=== PATIENT | female | born 1960 | race African-American/Black ===

== ENCOUNTER 2016-07-01 05:19 | Inpatient (IN) ==
[2016-06-30 14:04] LABS: Basophils # 0.1 10*3/uL (0.0-0.2); Basophils % 1.1 % (0.0-0.8); Eosinophils # 0.3 10*3/uL (0.0-0.87); Eosinophils % 3.6 % (0.00-10.9); Hematocrit 38.2 VOL% (35.7-47.0); Hemoglobin 12.6 GM/DL (12.0-16.0); Immature Granulocytes % 0.1 %; Immature Granulocytes Absolute 0.01 #; Lymphocytes # 3.2 10*3/uL (1.4-4.0); Lymphocytes % 45.4 % (21.3-54.2); Mean Corpuscular Hemoglobin 33 PG (27-34); Mean Corpuscular Volume 101.1 FL (87-102); Mean Platelet Volume 10.6 FL (9.6-12.0); Monocytes # 0.5 10*3/uL (0.11-0.8); Monocytes % 6.4 % (1.7-12.7); Neutrophils # 3.1 10*3/uL (1.4-7.4); Neutrophils % 43.4 % (38.7-73.9); Platelet Count 202 T/CUMM (130-400); Red Blood Count 3.78 MC/CUMM (3.8-5.5); Red Cell Distribution Width 13.3 % (9.3-17.3)
[2016-06-30 14:11] LABS: Apearance,Urine CLEAR (Clear); Bilirubin,Urine Negative (Negative); Blood, Urine Negative (Negative); Glucose,Urine (UA) Negative (Negative); Ketones,Urine Negative (Negative); Mucus,Urine Occasional /LPF (Occasional); Nitrite,Urine Negative (Negative); Protein,Urine Negative; RBC,Urine 1 /HPF (0-4); Squamous Epithelial Cell,Urine Occasional /HPF (0-10); Urine Color Yellow (Yellow); Urine Specific Gravity 1.023 (1.001-1.035); WBC,Urine <1 /HPF (0-6)
--- NOTE | 2016-06-30 14:11 | EKG Report ---
Stationary ECG Study [facility] Test Date: 06/30/2016 2:10:05 PM Pat Name: VIANEY MEDINA Department: Room: Gender: F Fitness Coordinator: SERENA [birth year] : 1960 Requested by: Finn Crow Order Number: [id number] Reading MD: CASSY LACY Intervals Bath Rate: 72 P: 65 MT: 175 QRS: 79 QRSD: 96 T: 39 QT: 387 QTc: 411 Interpretive Statements SINUS RHYTHM WITH OCCASIONAL VENTRICULAR PREMATURE COMPLEXES Electronically Signed On 06-30-16 16:29:38 COMPLAINT INVESTIGATIONS OFFICER by CASSY LACY [email or web address]
[2016-06-30 14:41] LABS: Albumin 3.7 G/DL (3.4-5.0); Bilirubin,Total 0.4 MG/DL (0.2-1.0); Calcium 8.9 MG/DL (8.5-10.1); Osmolality,Calculated 282.1 MOS/KG (273-304); Potassium 3.7 MMOL/L (3.5-5.1); Total Protein 7.2 G/DL (6.4-8.3)
--- NOTE | 2016-06-30 15:42 | XRay Report ---
XR chest 2V Indication: Preop respiratory evaluation. Chest 2 views: No comparison. Heart is upper limits normal in size. Aorta slightly tortuous. Mediastinal contours unremarkable. No infiltrates are shown. Impression: No acute cardio pulmonary disease. PROCEDURE INTERPRETED AT [facility] DEPARTMENT OF RADIOLOGY Final Report Signed by: Trevon Stevens M.D.
[2016-07-01] MEDS ORDERED: VANCOMYCIN INJ 1,000 MG in SODIUM CHLORIDE 0.9% 250 ML IV ONE (06:00)
--- NOTE | 2016-07-01 06:55 | History and Physical Update ---
History and Physical Update - History and Physical H&P was reviewed, the patient examined and there: are no changes in the patients condition since last H&P was completed. - Dictation Physical: refer to scanned H&P
[2016-07-01] MEDS ORDERED: SODIUM CHLORIDE 0.9% 100 ML IV ONE (06:58)
[2016-07-01] MEDS ORDERED: VANCOMYCIN 1,000 MG VIAL ONE (06:58)
[2016-07-01] MEDS ORDERED: ceFAZolin 1,000 MG VIAL ONE (06:58)
[2016-07-01] MEDS ORDERED: LACTATED RINGERS 1,000 ML IV SCH (07:00)
[2016-07-01] MEDS ORDERED: BUPIVACAINE 0.5% 50 ML VIAL ONE (08:48)
[2016-07-01] MEDS ORDERED: EPINEPHrine 1 MG/ML VIAL ONE (08:49)
[2016-07-01] MEDS ORDERED: MORPHINE 10 MG/1 ML VIAL ONE (08:49)
[2016-07-01] MEDS ORDERED: methylPREDNISolone SOD SUC 125 MG/2 ML VIAL ONE (08:49)
[2016-07-01] MEDS ORDERED: LIDOCAINE 1% 5 ML VIAL ONE (09:10)
[2016-07-01] MEDS ORDERED: PROPOFOL 200 MG/20 ML VIAL IV ONE (09:10)
[2016-07-01] MEDS ORDERED: ONDANSETRON 4 MG/2 ML VIAL ONE ×2 (09:10→12:10)
[2016-07-01] MEDS ORDERED: TRANEXAMIC ACID 1,000 MG/10 ML VIAL IV ONE (10:47)
[2016-07-01] MEDS ORDERED: PROMETHAZINE 25 MG/1 ML VIAL IM PRN (11:27)
[2016-07-01] MEDS ORDERED: ONDANSETRON 4 MG/2 ML VIAL IV PRN ×2 (11:27→12:26)
[2016-07-01] MEDS ORDERED: diphenhydrAMINE CAP 25 MG CAPSULE PO PRN (11:27)
[2016-07-01] MEDS ORDERED: HYDROmorphone PCA 30 MG/30 ML SYRINGE IV SCH (11:30)
[2016-07-01] MEDS ORDERED: ROPIVACAINE 0.5% 30 ML VIAL ONE (11:35)
[2016-07-01] MEDS ORDERED: HYDROmorphone 2 MG/1 ML VIAL ONE ×2 (11:41→12:10)
[2016-07-01] MEDS ORDERED: MIDAZOLAM 2 MG/2 ML VIAL ONE ×2 (11:43→12:42)
--- NOTE | 2016-07-01 12:00 | XRay Report ---
Referring Physician: Finn Crow Exam: XR knee 2V LT Date: July 01, 2016 at 11:24 AM Reason: Joint replacement left knee Comparison: Left knee x-rays April 23, 2016 Findings: The patient is status post interval left total knee replacement. Note is made of a recent fracture of the lateral aspect of the distal left femur as seen on the previous x-rays. Position and alignment of the surgical hardware appear satisfactory. A surgical drain and surgical skin elo are present at the anterior left knee, and there is scattered soft tissue air, which is likely related to recent surgery. The remaining osseous structures appear intact. Impression: On the previous x-rays, there was a mildly displaced fracture of the lateral aspect of the distal left femur. There has been interval left total knee replacement, which demonstrates satisfactory position and alignment. PROCEDURE INTERPRETED AT [facility] DEPARTMENT OF RADIOLOGY Final Report Signed by: Dr. Celina Fisher
[2016-07-01] MEDS: HYDROmorphone 2 MG/1 ML VIAL IV PRN ×2 (12:12→12:20)
[2016-07-01] MEDS ORDERED: MEPERIDINE 25 MG/1 ML VIAL IV PRN (12:26)
--- NOTE | 2016-07-01 12:39 | Anesthesia ---
Anesthesia Post OP - Post Ansesthetic Evaluation Patient seen in post op: Yes Resp: within normal limits CV: within normal limits Mental: within normal limits Temp: within normal limits Ducs-Ob-Yfkslosgz: within normal limits Nausea and Vomiting: within normal limits Pain: within normal limits
[2016-07-01] MEDS ORDERED: SEVOFLURANE 1 UNIT/15 MINUTE INH ONE (12:42)
[2016-07-01] MEDS ORDERED: LACTATED RINGERS 1,000 ML IV ONE (12:43)
[2016-07-01] MEDS ORDERED: fentaNYL 100 MCG/2 ML VIAL ONE (12:43)
[2016-07-01] MEDS ORDERED: LABETALOL 20 MG/4 ML SYRINGE IV ONE (13:00)
[2016-07-01] MEDS: SODIUM CHLORIDE 0.9% 1,000 ML IV SCH ×2 (13:20→15:12)
[2016-07-01] MEDS ORDERED: ALBUTEROL 2.5 MG/3 ML NEB RESP TX PRN (14:00)
[2016-07-01] MEDS: LABETALOL 20 MG/4 ML SYRINGE IV ONE ×2 (15:04→16:01)
[2016-07-01] MEDS: KETOROLAC 30 MG/1 ML VIAL IV SCH ×3 (15:07→23:55)
[2016-07-01] MEDS: ACETAMINOPHEN 500 MG TABLET PO SCH ×2 (16:38→21:46)
[2016-07-01] MEDS: MORPHINE IR 15 MG TABLET PO SCH (21:46)
[2016-07-01] MEDS: DOCUSATE SODIUM 100 MG CAPSULE PO SCH (21:46)
[2016-07-01] MEDS: ZALEPLON 5 MG CAPSULE PO PRN (23:55)
[2016-07-02] MEDS: SODIUM CHLORIDE 0.9% 1,000 ML IV SCH (02:01)
[2016-07-02] MEDS: HYDROmorphone 2 MG/1 ML VIAL IV PRN ×5 (02:01→21:52)
[2016-07-02 04:29] LABS: Basophils % 0.4 % (0.0-0.8); Eosinophils % 0.3 % (0.00-10.9); Hematocrit 29.1 VOL% (35.7-47.0); Hemoglobin 9.6 GM/DL (12.0-16.0); Immature Granulocytes % 0.2 %; Immature Granulocytes Absolute 0.02 #; Lymphocytes # 1.9 10*3/uL (1.4-4.0); Lymphocytes % 20.6 % (21.3-54.2); Mean Corpuscular Hemoglobin 33 PG (27-34); Mean Corpuscular Volume 101.4 FL (87-102); Mean Platelet Volume 11.1 FL (9.6-12.0); Monocytes % 10.4 % (1.7-12.7); Neutrophils # 6.2 10*3/uL (1.4-7.4); Neutrophils % 68.1 % (38.7-73.9); Platelet Count 200 T/CUMM (130-400); Red Blood Count 2.87 MC/CUMM (3.8-5.5); Red Cell Distribution Width 13.2 % (9.3-17.3); White Blood Count 9.1 T/CUMM (4-12)
[2016-07-02] MEDS: ACETAMINOPHEN 500 MG TABLET PO SCH ×2 (04:32→11:00)
[2016-07-02] MEDS: KETOROLAC 30 MG/1 ML VIAL IV SCH (04:41)
[2016-07-02] MEDS: ENOXAPARIN 40 MG/0.4 ML SYRINGE SUBCUT SCH (04:41)
[2016-07-02 05:10] LABS: Calcium 8.2 MG/DL (8.5-10.1); Osmolality,Calculated 288.6 MOS/KG (273-304); Potassium 4.2 MMOL/L (3.5-5.1)
[2016-07-02] MEDS: MORPHINE IR 15 MG TABLET PO SCH ×2 (10:59→20:34)
[2016-07-02] MEDS: DOCUSATE SODIUM 100 MG CAPSULE PO SCH ×2 (11:00→20:34)
[2016-07-02] MEDS ORDERED: ACETAMINOPHEN 325 MG TABLET PO PRN (11:28)
--- NOTE | 2016-07-02 11:48 | Pathology Report from [facility] ---
ACCESSION # : [id number] PATIENT NAME : Vianey Medina ORDERING DR : Finn Crow MD CLINICAL HX: Left knee osteoarthritis, healed lateral femoral condyle fracture POST-OP DX: Same SPECIMEN INFO: Left knee bone and tissue GROSS DESCRIPTION: The specimen is received in formalin labeled with the patient 's name and consists of two fragments of bone, cartilage and adipose tissue collectively measuring 12.5 x 15.8 cm. The articular surfaces are markedly degenerative with prominent cartilaginous slipping and marked osteophyte formation. Procedure Rn tissue submitted in one cassette following decalcification. DIAGNOSIS FOR VIANEY MEDINA: LEFT KNEE BONE AND TISSUE, TOTAL REPLACEMENT: Osteoarthritis. SERVICE DATE: 07/01/2016 REPORT DATE: 07/02/2016 PATHOLOGIST: Jag Steele
[2016-07-02] MEDS: ZALEPLON 5 MG CAPSULE PO PRN (23:28)
[2016-07-03] MEDS: HYDROmorphone 2 MG/1 ML VIAL IV PRN ×3 (02:06→18:33)
[2016-07-03] MEDS: ENOXAPARIN 40 MG/0.4 ML SYRINGE SUBCUT SCH (04:39)
[2016-07-03 07:15] LABS: Basophils # 0.1 10*3/uL (0.0-0.2); Basophils % 0.6 % (0.0-0.8); Eosinophils # 0.2 10*3/uL (0.0-0.87); Hematocrit 27.6 VOL% (35.7-47.0); Hemoglobin 9.4 GM/DL (12.0-16.0); Immature Granulocytes % 0.1 %; Immature Granulocytes Absolute 0.01 #; Lymphocytes # 2.8 10*3/uL (1.4-4.0); Lymphocytes % 36.6 % (21.3-54.2); Mean Corpuscular HGB Conc 34.1 GM/DL (32-36); Mean Corpuscular Hemoglobin 33 PG (27-34); Mean Corpuscular Volume 97.2 FL (87-102); Mean Platelet Volume 11.4 FL (9.6-12.0); Monocytes # 0.8 10*3/uL (0.11-0.8); Monocytes % 10.3 % (1.7-12.7); Neutrophils # 3.8 10*3/uL (1.4-7.4); Neutrophils % 49.4 % (38.7-73.9); Platelet Count 193 T/CUMM (130-400); Red Blood Count 2.84 MC/CUMM (3.8-5.5); Red Cell Distribution Width 12.7 % (9.3-17.3); White Blood Count 7.8 T/CUMM (4-12)
[2016-07-03] MEDS: DOCUSATE SODIUM 100 MG CAPSULE PO SCH ×2 (09:28→21:02)
[2016-07-03] MEDS: MORPHINE IR 15 MG TABLET PO SCH ×2 (09:29→21:01)
[2016-07-03] MEDS: MAGNESIUM HYDROXIDE SUSP 30 ML UDCUP PO PRN (09:30)
--- NOTE | 2016-07-03 13:57 | Orthopedic Progress Note ---
Assessment and Plan (1) Status post total left knee replacement Status: Acute Assessment and plan: Out of bed with therapy twice daily DVT prophylaxis Discharge planning Current Visit: Yes Orthopedics - Subjective Interval history: This note should be dated 07/02/2016 Patient's pain is currently controlled she had no acute events overnight. On exam her dressings clean and dry she is neurovascular intact Exam - Constitutional Vitals: Period Temp Pulse Resp BP Sys/Chavez Pulse Ox Last 24 Hr 98.1 F-98.5 F 87-92 14-20 139-165/74-97 96-100 Results - Labs CBC & BMP: 07/03/16 06:34 07/02/16 03:56
--- NOTE | 2016-07-03 13:57 | Orthopedic Progress Note ---
Assessment and Plan (1) Status post total left knee replacement Status: Acute Assessment and plan: Out of bed with therapy twice daily DVT prophylaxis Discharge home tomorrow with home health and home PT We will consult Dr. Rodriguez to help with pain management Current Visit: Yes Orthopedics - Subjective Interval history: Patient plans of left knee pain today. He is been significant overnight. On exam she got some mild edema she is neurovascular intact her incision is clean and dry Exam - Constitutional Vitals: Period Temp Pulse Resp BP Sys/Chavez Pulse Ox Last 24 Hr 98.1 F-98.5 F 87-92 14-20 139-165/74-97 96-100 Results - Labs CBC & BMP: 07/03/16 06:34 07/02/16 03:56
--- NOTE | 2016-07-03 14:00 | Discharge Summary ---
Hospital Course - Hospital Course Hospital Course: Patient was admitted to the hospital following total knee arthroplasty. She tolerated procedure well was transferred floor stable condition postoperatively. She received routine antibiotics and thromboprophylaxis. She was seen by physical therapy daily. She was ambulating safely she was subsequent discharged. She did have some pain control issues postoperatively, Dr. Garcia was consult today in management as he is her pain management physician. Plan discharge her wound was clean and dry she is neurovascular intact. Diagnosis - Discharge Diagnosis (1) Status post total left knee replacement Status: Acute Specialty Discharge - Follow Up or Referrals Follow up with: Simon Rodriguez MD [Physician] - 1 Month (Please call office Thursday morning for 1 month follow up appointment) Finn Crow MD [Physician] - 07/30/16 2:15 pm (3-4 weeks) Discharge Plan - Discharge Data Disposition: Home Health Service Condition at Discharge: Stable Discharge Diet: advance to your usual diet Activity: ambulate only with your walker Hygiene: may shower Weight Bearing at Discharge: weight bear as tolerated Driving: not until seen by doctor Contact your physician if you experience:: fever over 101, Difficulty voiding, Redness or swelling, Nausea/Vomiting, Shortness of breath, Bleeding, pain uncontrolled by pain medications Wound / Dressing Care Instructions: Begin daily dressing change on Thursday. Remove elo on 07/13/2015. Okay to shower, no tub soaks - Discharge Medications New Aspirin EC Tab 325 mg PO DAILY #30 tablet Discontinued traMADol TAB [Ultram] 50 mg PO QID Morphine Ir Tab [Morphine IR Tab] 15 mg PO Q12HR HYDROcodone/ACETAMIN 10-325 [[place] 10-325] 1 tablet PO BID Albuterol Sulfate [Ventolin HFA] 2 puff INH Q6H PRN PRN Reason: Shortness Of Breath/Wheezing - Follow Up or Referral Follow Up: Simon Rodriguez MD [Physician] - 1 Month (Please call office Thursday morning for 1 month follow up appointment) Finn Crow MD [Physician] - 07/30/16 2:15 pm (3-4 weeks) - Forms/Instructions Instructions: Total Knee Replacement (DC) Additional Discharge Instructions: Weight-bear as tolerated, total knee protocol Exam - Constitutional Vitals: Period Temp Pulse Resp BP Sys/Chavez Pulse Ox Last 24 Hr 98.1 F-98.5 F 87-92 14-20 139-165/74-97 96-100 Discharge Results Procedures and tests throughout hospitalization: Pending Orders 07/04/16 04:00 Comp Blood Count Auto Diff IN AM Labs on day of discharge: Labs from last 24 hours 07/03/16 06:34 WBC 7.8 RBC 2.84 L Hgb 9.4 L Hct 27.6 L MCV 97.2 MCH 33 MCHC 34.1 RDW 12.7 Plt Count 193 MPV 11.4 Neut % (Auto) 49.4 Lymph % (Auto) 36.6 Rock % (Auto) 10.3 Eos % (Auto) 3.0 Baso % (Auto) 0.6 Neut # (Auto) 3.8 Lymph # (Auto) 2.8 Rock # (Auto) 0.8 Eos # (Auto) 0.2 Baso # (Auto) 0.1 Immature Gran % 0.1 Nucleated RBC % 0.0 Immature Gran # 0.01 Nucleated RBCs # 0.00 DS: Provider Date of admission: 07/01/16 05:19 Primary care physician: PRACHI Lynn Attending physician on admission: Finn Crow MD Consults: 07/01/16 11:27 Consult to Case Mgmt/Social Srvs [CONS] Routine Reason for Case Mgmt/Social Srvs: Rehab Home Health Equipment Consult Comment: Bedside Commode, f/home; Pt 5ft 2in 158 lbs; deliver room 312 before D/C Consult to Occupational Therapy [CONS] Routine Reason for Occupational Therapy: Evaluate and Treat Consult Comment: ADL's Consult to Physical Therapy [CONS] Routine Reason for Physical Therapy: Evaluate and Treat Gait Training Start Therapy: Today 07/01/16 13:40 Consult to Pharmacy [CONS] Routine Reason for Pharmacy Consult: Adjust Meds Renal Funct 07/02/16 18:16 Consult to Physical Therapy [CONS] Routine Reason for Physical Therapy: Other Consult Comment: Order Standard Walker f/home rehab deliver before Pt is D/C 07/03/16 08:33 Consult to Physician [CONS] Routine Comment: Consulting Provider: Simon Rodriguez Consulting Provider Notified: Yes When should Consulting Provider be notified: Now Person Notified: gray [email or web address] Date Notified: 07/03/16 Time Notified: 08:43 Discharging clinician: Finn Crow MD
--- NOTE | 2016-07-03 16:33 | Pain Management Consult Note ---
Assessment and Plan - Time spent with patient Time spent with patient: Less than 30 minutes (will write her prescriptions) History of Present Illness Chief complaint: left knee pain History of present illness: Ms. Gonzales is a 56 year old female status post left knee replacement and needs prescriptions for home tomorrow Home Medications Medication Instructions Recorded Confirmed Type Aspirin EC Tab 325 mg PO DAILY #30 tablet 07/03/16 Rx Allergies Allergy/AdvReac Type Severity Reaction Status Date / Time No Known Allergies Allergy Verified 07/01/16 06:40 Medical,Surgical,& Family Hx - Medical History Neurology: No history of: Seizures HEENT: History of: Eye Problem (CONTACTS) Endocrine: History of: Diabetes Mellitus (NIDDM) (PAST HX) Rheumatology: History of;: Rheumatoid Arthritis (BACK, ELBOWS, NECK AND SHOULDERS) Respiratory: History of: Asthma Musculoskeletal: History of: Back/Neck Problems (chronic back pain), Musculoskeletal Problems (OA KEFT KNEE; BACK INJ LAST 04/2016 DR LONG.) - Surgical History HEENT Surgeries: Surgical HX of: Tonsilectomy & Adenoidectomy Abdominal Surgeries: Surgical HX of: Gastric Bypass Surgery (05/2015 GASTRIC SLEEVE) Reproductive Surgeries: Surgical HX of;: Section (X2), Tubal Ligation Orthopedic Surgeries: Surgical HX of;: Total Knee Replacement (RT KNEE 2009; Lt 2016) - Social History Smoking Status: Current some day smoker Frequency of Alcohol Use: Occasionally Type of Drug Use: None 12 point system: reviewed and no additional remarkable complaints except as stated - Constitutional Constitutional: Present: as per HPI - EENT Nose, mouth and throat: Present: as per HPI - Cardiovascular Cardiovascular: Present: chest pain at rest - Respiratory Respiratory: Present: as per HPI - Gastrointestinal Gastrointestinal: Present: as per HPI - Genitourinary Genitourinary: Present: as per HPI - Musculoskeletal Musculoskeletal: Present: other (left knee pain) - Neurological Neurological: Present: abnormal gait - Endocrine Endocrine: Present: as per HPI Exam - Constitutional Vitals: Period Temp Pulse Resp BP Sys/Chavez Pulse Ox Last 24 Hr 98.1 F-99.1 F 91-97 14-20 139-165/74-97 100-100 General appearance: normal weight - Head Head exam: Present: normal inspection - Eye Eye exam: Present: EOMI Pupils: Present: ARABELLA - ENT Ear exam: Present: intact Mouth exam: Present: normal external inspection - Neck Neck exam: Present: normal inspection - Respiratory Respiratory exam: Present: clear to auscultation bilaterally - Cardiovascular Cardiovascular exam: Present: RRR - GI/Abdominal GI/Abdominal exam: Present: normal bowel sounds - Expanded Left Lower Knee exam: Present: tenderness Lower leg exam: Present: tenderness Ankle exam: Present: normal inspection Foot/Toe exam: Present: normal inspection Neuro vascular tendon exam: Present: no vascular compromise Gait: Present: not tested/not observed. Absent: observed and normal - Neurological Exam Neurological exam: Present: alert - Skin Skin exam: Present: normal color Results - Labs CBC & BMP: 07/03/16 06:34 07/02/16 03:56 Lab Results: I have reviewed the past 24 hour labs Specialty Discharge - Follow Up or Referrals Follow up with: Finn Crow MD [Physician] - 07/30/16 2:15 pm (3-4 weeks)
[2016-07-04] MEDS: ZALEPLON 5 MG CAPSULE PO PRN (00:16)
[2016-07-04] MEDS: HYDROmorphone 2 MG/1 ML VIAL IV PRN (03:44)
[2016-07-04 05:36] LABS: Basophils # 0.1 10*3/uL (0.0-0.2); Basophils % 0.8 % (0.0-0.8); Eosinophils # 0.2 10*3/uL (0.0-0.87); Hematocrit 28.6 VOL% (35.7-47.0); Hemoglobin 9.4 GM/DL (12.0-16.0); Immature Granulocytes % 0.3 %; Immature Granulocytes Absolute 0.02 #; Lymphocytes # 2.9 10*3/uL (1.4-4.0); Mean Corpuscular HGB Conc 32.9 GM/DL (32-36); Mean Corpuscular Hemoglobin 33 PG (27-34); Mean Corpuscular Volume 101.4 FL (87-102); Mean Platelet Volume 10.8 FL (9.6-12.0); Monocytes # 0.7 10*3/uL (0.11-0.8); Monocytes % 10.1 % (1.7-12.7); Neutrophils # 3.4 10*3/uL (1.4-7.4); Neutrophils % 46.8 % (38.7-73.9); Platelet Count 204 T/CUMM (130-400); Red Blood Count 2.82 MC/CUMM (3.8-5.5); Red Cell Distribution Width 12.9 % (9.3-17.3); White Blood Count 7.3 T/CUMM (4-12)
[2016-07-04] MEDS: ENOXAPARIN 40 MG/0.4 ML SYRINGE SUBCUT SCH (06:17)
[2016-07-04] MEDS: MAGNESIUM HYDROXIDE SUSP 30 ML UDCUP PO PRN ×2 (06:17→12:57)
--- NOTE | 2016-07-04 06:31 | Pain Management Progress Note ---
Assessment and Plan (1) Status post total left knee replacement Status: Acute Assessment and plan: Agree with planned discharge. Pain prescriptions have been written and patient will follow up with me in pain clinic in 1 month Current Visit: Yes Exam - Constitutional Vitals: Period Temp Pulse Resp BP Sys/Chavez Pulse Ox Last 24 Hr 98.3 F-99.5 F 84-107 18-19 109-142/65-90 95-100 General appearance: normal weight - Head Head exam: Present: normal inspection - Eye Eye exam: Present: EOMI Pupils: Present: ARABELLA - ENT ENT exam: Present: normal exam Ear exam: Present: intact Mouth exam: Present: normal external inspection - Neck Neck exam: Present: normal inspection - Respiratory Respiratory exam: Present: clear to auscultation bilaterally - Cardiovascular Cardiovascular exam: Present: RRR - GI/Abdominal GI/Abdominal exam: Present: normal bowel sounds - Extremities Exam Extremities exam: Present: other (left knee is tender) - Back Exam Back exam: Present: vertebral tenderness - Neurological Exam Neurological exam: Present: alert, oriented X3 - Skin Skin exam: Present: normal color Results - Labs CBC & BMP: 07/04/16 04:47 07/02/16 03:56 Lab Results: I have reviewed the past 24 hour labs Specialty Discharge - Follow Up or Referrals Follow up with: Finn Crow MD [Physician] - 07/30/16 2:15 pm (3-4 weeks)
[2016-07-04] MEDS: MORPHINE IR 15 MG TABLET PO SCH ×2 (08:13→09:47)
--- NOTE | 2016-07-04 08:54 | Orthopedic Progress Note ---
Orthopedics - Subjective Interval history: Comfortable. dressing dry. nv ok. home today with home health. Exam - Constitutional Vitals: Period Temp Pulse Resp BP Sys/Chavez Pulse Ox Last 24 Hr 98.3 F-99.5 F 84-107 18-19 109-140/65-89 95-100 Results - Labs CBC & BMP: 07/04/16 04:47 07/02/16 03:56 Specialty Discharge - Follow Up or Referrals Follow up with: Simon Rodriguez MD [Physician] - 1 Month Finn Crow MD [Physician] - 07/30/16 2:15 pm (3-4 weeks)
[2016-07-04] MEDS: DOCUSATE SODIUM 100 MG CAPSULE PO SCH (09:47)
[2016-07-04] MEDS: SODIUM CHLORIDE 0.9% 1,000 ML IV SCH (15:10)
[2016-07-04 15:45] VITALS: BP 107/71
== END 2016-07-04 15:22 | disposition home health service (06) | DRG 470 ==
LOC: N.SDSINP 05:19 → N.3E 13:20
PROVIDERS: ADMIT Orthopaedic Surgery; ATTEND Orthopaedic Surgery